=== PATIENT | male | born 1990 | race Hispanic/Latino ===

== ENCOUNTER 2024-03-10 03:50 | Emergency (ER) | payer SELFPAY ==
[2024-03-10] VITALS (8 sets, daily range): BP systolic 90–107; BP diastolic 53–74; BMI 24.6
--- NOTE | 2024-03-10 03:55 | ED.GENMED ---
History of Present Illness
General
Chief Complaint: Alcohol Problem
Source: patient and ambulance crew
Exam Limitations: clinical condition
Time Seen by Provider: 03/10/24 03:53
Nursing documentation reviewed up to this point in time: agreed with
History of Present Illness
History of Present Illness:
34-year-old male presents emergency department due to alcohol intoxication. He was found lying on the sidewalk in [place]. He was given Narcan 0.4 mL IV, which did not help. He is more awake upon arrival. He smells of alcohol.
Past History
Social History
Alcohol: Chronic alcoholic
Review of Systems
Review of Systems
Allergies reviewed?: Yes
Unable to obtain full review of systems at this time due to: due to acuity
All Other Systems: Not applicable
Neurological: Reports other (Intoxicated)
Phy Exam
Physical Exam
Physical Exam:
Physical Exam
General: Intoxicated, alcohol on breath
Neck: supple. no meningeal signs. normal posterior pharynx
Heart: s1/s2 regular rate and rhythm, no murmur. equal radial
pulses.
HEENT: Pupils equal round reactive to light, EOMI
Lungs: no acute respiratory distress. clear bilaterally
Abdomen: normal bowel sounds. not tender. no CVAT
Neuro: alert and oriented. no focal neurological deficits cranial nerves II through XII intact
Skin: no rash
Psychiatric: Intoxicated
Extremities: no edema. no calf tenderness. negative homans. good distal pulses
Scores
Withdrawal Assessment of Alcohol
Withdrawal Assessment Completed?: Not applicable
Course
Vital Signs
Initial and Last Documented VS:
Initial Vital Signs
BP
97/58
03/10/24 03:52
Last Documented Vital Signs
Temp Pulse Resp BP Pulse Ox
96.7 F L 68 12 104/54 97
03/10/24 03:57 03/10/24 05:45 03/10/24 05:45 03/10/24 05:00 03/10/24 05:45
MDM/Problems Addressed
Differential Diagnosis Includes:
Alcohol intoxication
MDM/Problems Addressed:
34-year-old male with alcohol intoxication, no signs of trauma. Awake and alert, but intoxicated. Patient is stable for discharge when he can go home with a responsible adult.
*Pulse Oximetry
Patient hypoxic: no
*EKG
Interpreted by ED Provider?: NA
*Supervisor [employer] Making [employer] Interpretation
Rate: Supervisor [employer]- N/A
*Critical Care Note
Total Time (30-74mins, 75-104mins- exclusive of procedures): Not Applicable
Patient Management
Social determinants of health affecting care: Substance abuse and Poor outpatient follow-up
Escalation/DeEscalation of care consider admission/obs:
Admit not indicated
ED Attending Note
-
Portions of this chart may have been created with voice recognition software.� Occasional wrong word or��sound alike� substitutions may have occurred due to the inherent limitations of voice recognition software.
Discharge Plan
Departure
Patient Disposition: Home (Routine Discharge)
Date of Disposition: 03/10/24
Time of Disposition: 06:25
Patient with high blood pressure during this ER visit?: No
Condition: Good
Discharge Problem:
Alcohol intoxication
Instructions: Alcohol Use Disorder (DC)
Interventions
Interventions:
*Risk Screen - Suicide Last Done: 03/10/24 03:57
*General Assessment Last Done: 03/10/24 03:57
*Neglect/Abuse Screening Last Done: 03/10/24 03:57
ED- Fall Risk Assessment Last Done: 03/10/24 03:57
*ED COVID-19 Vaccine History Last Done: 03/10/24 03:57
ED- Neurological Assessment Last Done: 03/10/24 04:00
ED-Psychological Assessment Last Done: 03/10/24 04:00
Discharge Date and Time
Print Language: [id number]
== END 2024-03-10 09:40 | disposition home or self-care (01) ==
LOC: EMR 03:50
PROVIDERS: EMERGENCY PHYSICIAN Emergency Medicine
DX: F10.129 Alcohol abuse with intoxication, unspecified (principal)
CPT/HCPCS: 99283